=== PATIENT | female | born 1980 | race African-American/Black ===

== ENCOUNTER 2019-10-24 15:20 | Outpatient (CLI) | payer OTHER, SELFPAY ==
[2019-10-24 15:57] LABS: Hemoglobin A1C 7.1 % (<5.7)
[2019-10-24 16:00] LABS: Anion Gap 15.9 mmol/L (7-16); Blood Urea Nitrogen 10 mg/dL (7-17); Calcium 9.1 mg/dL (8.4-10.2); Carbon Dioxide 21 mmol/L (22-30); Chloride 104 mmol/L (98-107); Estimated Glomerular Filt Rate > 60; Glucose 153 mg/dL (65-105); Potassium 3.9 mmol/L (3.4-5.0); Sodium 137 mmol/L (137-145)
[2019-10-24 18:26] LABS: Creatinine Urine 295.2 mg/dL
[2019-10-24 18:31] LABS: MALB Creatinine Ratio 51.4 mg/g (0-30); Microalbumin Urine Random 151.6 mg/L (0-16.7)
== END 2019-10-24 15:21 | disposition home or self-care (01) ==
PROVIDERS: PCP Internal Medicine; Visit Provider Nurse Practitioner
DX: E11.9 Type 2 diabetes mellitus without complications (principal)
CPT/HCPCS: 36415; 80048; 82043; 83036

== ENCOUNTER 2020-01-23 17:51 | Outpatient (CLI) | payer OTHER, SELFPAY ==
[2020-01-23 18:15] LABS: Anion Gap 9 mmol/L (8-16); Blood Urea Nitrogen 11 mg/dL (7-17); Carbon Dioxide 27 mmol/L (22-30); Chloride 105 mmol/L (98-107); Estimated Glomerular Filt Rate > 60; Glucose 262 mg/dL (65-105); Sodium 141 mmol/L (137-145)
== END 2020-01-23 17:52 | disposition home or self-care (01) ==
LOC: ANHLAB 17:52
PROVIDERS: PCP Internal Medicine; Visit Provider Nurse Practitioner
DX: E11.69 Type 2 diabetes mellitus with other specified complication (principal)
CPT/HCPCS: 36415; 80048

== ENCOUNTER 2020-04-21 11:33 | Outpatient (CLI) | payer OTHER, MEDICAID, SELFPAY ==
[2020-04-21 12:03] LABS: Basophils Percent Auto 0.3 % (0.2-1.2); Eosinophils Percent Auto 0.3 % (0-4.4); Hematocrit 41.8 % (37.0-47.0); Hemoglobin 13.7 g/dL (12.0-15.0); Immature Granulocyte Absolute 0.02 K/mm3 (0.00-0.031); Immature Granulocyte Percent A 0.3 % (0-0.5); Lymphocytes Absolute Auto 2.48 K/mm3 (0.9-3.2); Lymphocytes Percent Auto 34.4 % (18.3-44.2); Mean Corpuscular HGB Conc 32.8 g/dl (32-36); Mean Corpuscular Hemoglobin 29.3 pg (26-34); Mean Corpuscular Volume 89.3 fl (80-100); Mean Platelet Volume 11.5 fl (7.4-10.4); Monocytes Absolute Auto 0.5 K/mm3 (0.1-0.6); Monocytes Percent Auto 7.1 % (2.6-8.5); Neutrophils Absolute Auto 4.2 K/mm3 (1.3-6.7); Neutrophils Percent Auto 57.6 % (45.5-73.1); Platelet Count Result 233 k/mm3 (150-375); Red Blood Count 4.68 M/mm3 (4.2-5.4); Red Cell Distribution Width 13.6 % (11.5-14.5); White Blood Count 7.2 K/mm3 (4.5-10.0)
[2020-04-21 12:15] LABS: Alanine Aminotransferase 34 U/L (4-35); Albumin Level 4.5 g/dL (3.5-5.1); Alkaline Phosphatase 68 U/L (38-126); Anion Gap 6 mmol/L (8-16); Aspartate Amino Transferase 38 U/L (14-36); Bilirubin,Total 0.8 mg/dL (0.2-1.3); Blood Urea Nitrogen 10 mg/dL (7-17); Carbon Dioxide 27 mmol/L (22-30); Chloride 105 mmol/L (98-107); Cholesterol 198 mg/dL (0-200); Estimated Glomerular Filt Rate > 60; Glucose 112 mg/dL (65-105); HDL Direct 55 mg/dL; Potassium 4.5 mmol/L (3.4-5.0); Sodium 138 mmol/L (137-145); Triglycerides 172 mg/dL (<150)
[2020-04-21 12:17] LABS: Hemoglobin A1C 9.4 % (<5.7)
[2020-04-21 12:27] LABS: LDL Cholesterol Direct 114 mg/dL
[2020-04-21 13:40] LABS: Creatinine Urine 253.9 mg/dL
[2020-04-21 13:43] LABS: MALB Creatinine Ratio 13.8 mg/g (0-30); Microalbumin Urine Random 35.1 mg/L (0-16.7)
== END 2020-04-21 11:34 | disposition home or self-care (01) ==
PROVIDERS: PCP Internal Medicine; Visit Provider Nurse Practitioner
DX: E11.9 Type 2 diabetes mellitus without complications (principal)
CPT/HCPCS: 36415; 80053; 80061; 82043; 83036; 85025

== ENCOUNTER 2020-07-21 10:47 | Outpatient (CLI) | payer OTHER, MEDICAID, SELFPAY ==
[2020-07-21 11:45] LABS: Anion Gap 8 mmol/L (8-16); Blood Urea Nitrogen 7 mg/dL (7-17); Calcium 9.2 mg/dL (8.4-10.2); Carbon Dioxide 26 mmol/L (22-30); Chloride 105 mmol/L (98-107); Cholesterol 225 mg/dL (0-200); Estimated Glomerular Filt Rate > 60; Glucose 137 mg/dL (65-105); HDL Direct 52 mg/dL; Sodium 139 mmol/L (137-145); Triglycerides 181 mg/dL (<150)
[2020-07-21 11:46] LABS: Hemoglobin A1C 7.1 % (<5.7)
[2020-07-21 11:56] LABS: LDL Cholesterol Direct 124 mg/dL
[2020-07-21 12:15] LABS: Creatinine Urine 209.2 mg/dL
[2020-07-21 12:20] LABS: MALB Creatinine Ratio 14.7 mg/g (0-30); Microalbumin Urine Random 30.7 mg/L (0-16.7)
== END 2020-07-21 10:48 | disposition home or self-care (01) ==
PROVIDERS: PCP Internal Medicine; Visit Provider Nurse Practitioner
DX: E11.9 Type 2 diabetes mellitus without complications (principal)
CPT/HCPCS: 36415; 80048; 80061; 82043; 83036

== ENCOUNTER 2020-10-06 11:07 | Outpatient (CLI) | payer OTHER, MEDICAID, SELFPAY ==
[2020-10-06 12:32] LABS: Hemoglobin A1C 7.2 % (<5.7)
[2020-10-06 12:44] LABS: MALB Creatinine Ratio 23.4 mg/g (0-30); Microalbumin Urine Random 64.7 mg/L (0-16.7)
== END 2020-10-06 11:08 | disposition home or self-care (01) ==
LOC: ANHLAB 11:11
PROVIDERS: PCP Internal Medicine; Visit Provider Clinical Nurse Specialist
DX: E11.9 Type 2 diabetes mellitus without complications (principal)
CPT/HCPCS: 36415; 82043; 83036

== ENCOUNTER 2021-01-10 12:04 | Outpatient (CLI) | payer OTHER, MEDICAID, SELFPAY ==
[2021-01-10 12:39] LABS: Basophils Percent Auto 0.4 % (0.2-1.2); Eosinophils Percent Auto 0.4 % (0-4.4); Hematocrit 40.4 % (37.0-47.0); Hemoglobin 13.2 g/dL (12.0-15.0); Immature Granulocyte Absolute 0.02 K/mm3 (0.00-0.031); Immature Granulocyte Percent A 0.3 % (0-0.5); Lymphocytes Absolute Auto 2.81 K/mm3 (0.9-3.2); Lymphocytes Percent Auto 39.3 % (18.3-44.2); Mean Corpuscular HGB Conc 32.7 g/dl (32-36); Mean Corpuscular Hemoglobin 29.1 pg (26-34); Mean Corpuscular Volume 89.2 fl (80-100); Monocytes Absolute Auto 0.5 K/mm3 (0.1-0.6); Monocytes Percent Auto 6.4 % (2.6-8.5); Neutrophils Absolute Auto 3.8 K/mm3 (1.3-6.7); Neutrophils Percent Auto 53.2 % (45.5-73.1); Platelet Count Result 213 k/mm3 (150-375); Red Blood Count 4.53 M/mm3 (4.2-5.4); Red Cell Distribution Width 13.7 % (11.5-14.5); White Blood Count 7.2 K/mm3 (4.5-10.0)
[2021-01-10 12:52] LABS: Potassium 3.8 mmol/L (3.4-5.0)
[2021-01-10 13:03] LABS: LDL Cholesterol Direct 140 mg/dL
[2021-01-10 13:15] LABS: Hemoglobin A1C 7.1 % (<5.7)
[2021-01-10 13:24] LABS: Vitamin D 25 Hydroxy 15.2 ng/mL
[2021-01-10 13:50] LABS: Alanine Aminotransferase 24 U/L (4-35); Albumin Level 4.7 g/dL (3.5-5.1); Alkaline Phosphatase 65 U/L (38-126); Anion Gap 9 mmol/L (8-16); Aspartate Amino Transferase 32 U/L (14-36); Bilirubin,Total 1.1 mg/dL (0.2-1.3); Blood Urea Nitrogen 7 mg/dL (7-17); Calcium 9.3 mg/dL (8.4-10.2); Carbon Dioxide 26 mmol/L (22-30); Chloride 105 mmol/L (98-107); Cholesterol 229 mg/dL (0-200); Estimated Glomerular Filt Rate > 60; Glucose 141 mg/dL (65-110); HDL Direct 51 mg/dL; Sodium 140 mmol/L (137-145); Triglycerides 226 mg/dL (<150)
== END 2021-01-10 12:05 | disposition home or self-care (01) ==
LOC: ANHLAB 12:07
PROVIDERS: PCP Internal Medicine; Visit Provider Nurse Practitioner
DX: E11.9 Type 2 diabetes mellitus without complications (principal); Z13.21 Encounter for screening for nutritional disorder
CPT/HCPCS: 36415; 80053; 80061; 82306; 83036; 85025

== ENCOUNTER 2021-03-19 09:17 | Outpatient (CLI) | payer OTHER, MEDICAID, SELFPAY ==
--- NOTE | 2021-03-19 11:00 | NEURO_ITS ---
Impression: # Known diabetic complains of numbness of feet. # Normal motor and sensory nerve conduction study including F-waves. # Normal needle/EMG exam. # Clinical correlation recommended,possibility of small fiber neuropathy or higher involvement cannot be ruled out. Nerve Conduction Studies Anti Sensory Summary Table Stim Site NR Peak (ms) P-T Amp (?V) Site1 Site2 Delta-P (ms) Dist (cm) Juan Carlos (m/s) Left Sup Fibular Anti Sensory (Ant Lat Mall) 14 cm 2.8 10.9 14 cm Ant Lat Mall 2.8 16.0 57 Right Sup Fibular Anti Sensory (Ant Lat Mall) 14 cm 3.2 4.2 14 cm Ant Lat Mall 3.2 16.0 50 Left Sural Anti Sensory (Lat Mall) Calf 3.8 7.7 Calf Lat Mall 3.8 16.0 42 Right Sural Anti Sensory (Lat Mall) Calf 3.6 15.2 Calf Lat Mall 3.6 16.0 44 Motor Summary Table Stim Site NR Onset (ms) O-P Amp (mV) Site1 Site2 Delta-0 (ms) Dist (cm) Juan Carlos (m/s) Left Peroneal Motor (Vastus Med) Ankle 4.1 4.4 Popit Ankle 8.2 38.0 46 Popit 12.3 3.6 Right Peroneal Motor (Vastus Med) Ankle 3.5 3.8 Popit Ankle 8.2 40.0 49 Popit 11.7 5.1 Left Tibial Motor (Abd Mc Brev) Ankle 4.1 3.8 Knee Ankle 8.9 42.0 47 Knee 13.0 5.0 Right Tibial Motor (Abd Mc Brev) Ankle 4.0 3.7 Knee Ankle 8.7 42.0 48 Knee 12.7 2.4 F Wave Studies NR F-Lat (ms) L-R F-Lat (ms) Left Peroneal (Mrkrs) (EDB) 49.18 0.87 Right Peroneal (Mrkrs) (EDB) 48.31 0.87 Left Tibial (Mrkrs) (Abd Hallucis) 48.54 0.35 Right Tibial (Mrkrs) (Abd Hallucis) 48.19 0.35 EMG Side Muscle Nerve Root Ins Act Fibs Amp Dur Recrt Comment Right AntTibialis Dp Br Fibular L4-5 Nml Nml Nml Nml Nml Right Gastroc Tibial S1-2 Nml Nml Nml Nml Nml Right Fibularis Long Sup Br Fibular L5-S1 Nml Nml Nml Nml Nml Right Flex Dig Long Tibial L5-S2 Nml Nml Nml Nml Nml Right Ext Dig Brev Dp Br Fibular L5, S1 Nml Nml Nml Nml Nml Left AntTibialis Dp Br Fibular L4-5 Nml Nml Nml Nml Nml Left Gastroc Tibial S1-2 Nml Nml Nml Nml Nml Left Fibularis Long Sup Br Fibular L5-S1 Nml Nml Nml Nml Nml Left Flex Dig Long Tibial L5-S2 Nml Nml Nml Nml Nml Left Ext Dig Brev Dp Br Fibular L5, S1 Nml Nml Nml Nml Nml MTDD
== END 2021-03-19 09:18 | disposition home or self-care (01) ==
LOC: ANHNEURO 09:18
PROVIDERS: PCP Internal Medicine; Visit Provider Nurse Practitioner
DX: R20.0 Anesthesia of skin (principal); R20.2 Paresthesia of skin
CPT/HCPCS: 95886; 95910

== ENCOUNTER 2021-05-28 17:51 | Outpatient (CLI) | payer OTHER, MEDICAID, SELFPAY ==
[2021-05-28 18:32] LABS: Creatinine Urine 175.9 mg/dL
[2021-05-28 18:45] LABS: Anion Gap 9 mmol/L (8-16); Blood Urea Nitrogen 10 mg/dL (7-17); Calcium 9.8 mg/dL (8.4-10.2); Carbon Dioxide 24 mmol/L (22-30); Chloride 105 mmol/L (98-107); Cholesterol 269 mg/dL (0-200); Estimated Glomerular Filt Rate > 60; Glucose 153 mg/dL (65-110); HDL Direct 48 mg/dL; Potassium 3.6 mmol/L (3.4-5.0); Sodium 138 mmol/L (137-145); Triglycerides 351 mg/dL (<150)
[2021-05-28 18:56] LABS: LDL Cholesterol Direct 146 mg/dL
[2021-05-28 19:23] LABS: MALB Creatinine Ratio 242.3 mg/g (0-30); Microalbumin Urine Random 426.2 mg/L (0-16.7)
[2021-05-28 22:37] LABS: Hemoglobin A1C 8.4 % (<5.7)
[2021-05-29 01:56] LABS: Vitamin B12 > 1000.0 pg/mL (239-931)
== END 2021-05-28 17:52 | disposition home or self-care (01) ==
PROVIDERS: PCP Internal Medicine; Visit Provider Nurse Practitioner
DX: R20.0 Anesthesia of skin (principal); R20.2 Paresthesia of skin; E11.9 Type 2 diabetes mellitus without complications
CPT/HCPCS: 36415; 80048; 80061; 82043; 82607; 83036; 84443

== ENCOUNTER 2021-09-16 14:25 | Outpatient (CLI) | payer OTHER, MEDICAID, SELFPAY ==
[2021-09-16 14:53] LABS: Hemoglobin A1C 7.7 % (<5.7)
[2021-09-16 15:04] LABS: Anion Gap 6 mmol/L (8-16); Blood Urea Nitrogen 11 mg/dL (7-17); Carbon Dioxide 22 mmol/L (22-30); Chloride 107 mmol/L (98-107); Estimated Glomerular Filt Rate > 60; Glucose 174 mg/dL (65-110); Sodium 135 mmol/L (137-145)
== END 2021-09-16 14:26 | disposition home or self-care (01) ==
LOC: ANHLAB 14:26
PROVIDERS: PCP Internal Medicine; Visit Provider Nurse Practitioner
DX: E11.9 Type 2 diabetes mellitus without complications (principal)
CPT/HCPCS: 36415; 80048; 83036

== ENCOUNTER 2021-09-19 15:30 | Outpatient (RCR) | payer OTHER, MEDICAID, SELFPAY ==
[2021-06-27 09:25] VITALS: BMI 38.7
[2021-06-27 09:35] VITALS: BMI 38.7
[2021-08-15 15:11] VITALS: BMI 38.7
[2021-08-15 15:13] VITALS: BMI 38.7
[2021-09-19 15:36] VITALS: BMI 38.4
[2021-09-19 15:41] VITALS: BMI 38.4
== END 2021-09-25 23:59 | disposition home or self-care (01) ==
LOC: ANHDMC 15:30
PROVIDERS: PCP Internal Medicine; Visit Provider Nurse Practitioner
DX: E11.9 Type 2 diabetes mellitus without complications (principal); Z71.3 Dietary counseling and surveillance; Z71.89 Other specified counseling
CPT/HCPCS: 97802; 97803; G0108

== ENCOUNTER 2021-12-14 13:49 | Outpatient (CLI) | payer OTHER, MEDICAID, SELFPAY ==
[2021-12-14 14:22] LABS: Anion Gap 12 mmol/L (8-16); Blood Urea Nitrogen 10 mg/dL (7-17); Calcium 9.3 mg/dL (8.4-10.2); Carbon Dioxide 22 mmol/L (22-30); Chloride 104 mmol/L (98-107); Estimated Glomerular Filt Rate > 60; Glucose 233 mg/dL (65-110); Sodium 138 mmol/L (137-145)
[2021-12-14 16:22] LABS: Hemoglobin A1C 7.8 % (<5.7)
[2021-12-14 17:23] LABS: Creatinine Urine 169.9 mg/dL
[2021-12-14 17:50] LABS: Microalbumin Urine Random 52.6 mg/L (0-16.7)
== END 2021-12-14 13:50 | disposition home or self-care (01) ==
LOC: ANHLAB 13:51
PROVIDERS: Clinical Nurse Specialist; PCP Internal Medicine; Visit Provider Nurse Practitioner
DX: E11.9 Type 2 diabetes mellitus without complications (principal); F41.9 Anxiety disorder, unspecified
CPT/HCPCS: 36415; 80048; 82043; 83036; 84443

== ENCOUNTER 2021-12-24 15:30 | Outpatient (RCR) | payer OTHER, MEDICAID, SELFPAY | END 2022-01-13 08:23 | disposition home or self-care (01) | LOC: ANHDMC 15:30 | PROVIDERS: PCP Internal Medicine; Visit Provider Nurse Practitioner | DX: E11.9 Type 2 diabetes mellitus without complications (principal); Z71.89 Other specified counseling | CPT/HCPCS: G0108 ==

== ENCOUNTER 2022-01-17 14:38 | Outpatient (RCR) | payer OTHER, MEDICAID, SELFPAY | END 2022-01-17 16:19 | disposition home or self-care (01) | LOC: ANHDMC 14:38 | PROVIDERS: PCP Internal Medicine; Visit Provider Nurse Practitioner | DX: E11.9 Type 2 diabetes mellitus without complications (principal); Z71.89 Other specified counseling | CPT/HCPCS: G0108 ==

== ENCOUNTER 2022-11-01 10:34 | Outpatient (CLI) | payer OTHER, MEDICAID, SELFPAY ==
[2022-11-01 10:52] LABS: Basophils Percent Auto 0.3 % (0.2-1.2); Eosinophils Percent Auto 0.3 % (0-4.4); Hematocrit 39.9 % (37.0-47.0); Hemoglobin 12.4 g/dL (12.0-15.0); Immature Granulocyte Absolute 0.01 K/mm3 (0.00-0.031); Immature Granulocyte Percent A 0.2 % (0-0.5); Lymphocytes Absolute Auto 2.35 K/mm3 (0.9-3.2); Lymphocytes Percent Auto 39.4 % (18.3-44.2); Mean Corpuscular HGB Conc 31.1 g/dl (32-36); Mean Corpuscular Hemoglobin 26.1 pg (26-34); Monocytes Absolute Auto 0.4 K/mm3 (0.1-0.6); Monocytes Percent Auto 6.7 % (2.6-8.5); Neutrophils Absolute Auto 3.2 K/mm3 (1.3-6.7); Neutrophils Percent Auto 53.1 % (45.5-73.1); Platelet Count Result 270 k/mm3 (150-375); Red Blood Count 4.75 M/mm3 (4.2-5.4); Red Cell Distribution Width 14.7 % (11.5-14.5)
[2022-11-01 11:08] LABS: Alanine Aminotransferase 36 U/L (6-35); Albumin Level 4.4 g/dL (3.5-5.1); Alkaline Phosphatase 73 U/L (38-126); Anion Gap 7 mmol/L (8-16); Aspartate Amino Transferase 37 U/L (14-36); Bilirubin,Total 0.9 mg/dL (0.2-1.3); Blood Urea Nitrogen 6 mg/dL (7-17); Calcium 8.8 mg/dL (8.4-10.2); Carbon Dioxide 27 mmol/L (22-30); Chloride 104 mmol/L (98-107); Cholesterol 226 mg/dL (0-200); Estimated Glomerular Filt Rate > 60; Glucose 100 mg/dL (65-110); HDL Direct 49 mg/dL; Potassium 3.9 mmol/L (3.4-5.0); Sodium 138 mmol/L (137-145); Triglycerides 144 mg/dL (<150)
[2022-11-01 11:19] LABS: LDL Cholesterol Direct 123 mg/dL
[2022-11-01 11:37] LABS: Thyroid Stimulating Hormone 0.871 uIU/mL (0.465-4.680)
[2022-11-01 12:17] LABS: Vitamin D 25 Hydroxy 17.8 ng/mL
== END 2022-11-01 10:35 | disposition home or self-care (01) ==
PROVIDERS: PCP Internal Medicine; Visit Provider Nurse Practitioner Psychiatric/Mental Health
DX: E78.5 Hyperlipidemia, unspecified (principal); E23.2 Diabetes insipidus; F41.1 Generalized anxiety disorder; F25.1 Schizoaffective disorder, depressive type; Z79.899 Other long term (current) drug therapy; I10 Essential (primary) hypertension; E66.9 Obesity, unspecified
CPT/HCPCS: 36415; 80053; 80061; 82306; 84443; 85025

== ENCOUNTER 2022-12-04 15:23 | Outpatient (CLI) | payer OTHER, MEDICAID, SELFPAY ==
--- NOTE | ~2022-12-04 | US_ITS ---
EXAMINATION: US pelvic complete w TV DATE: 12/04/2022 18:44 INDICATION: Benign neoplasm of connective and other soft tissues. TECHNIQUE: Multiple transabdominal and transvaginal sonographic images of the pelvis were obtained. COMPARISON: None. FINDINGS: TRANSABDOMINAL ULTRASOUND: The uterus measures 11.7 x 7.1 x 6.9 cm. There is physiologic free fluid in the pelvis. TRANSVAGINAL ULTRASOUND: The endometrial complex measures 10 mm in thickness. There are greater than 10 fibroids in the uterus measuring up to approximately 4.0 cm. The second largest fibroid measures 3.4 cm. The right ovary me asures 3.4 x 1.9 x 2.4 cm. The left ovary measures 2.5 x 1.2 x 2.0 cm. There is normal vascular flow in the ovaries. IMPRESSION: 1. Uterine fibroids. Reviewed, dictated and finalized at location [facility]. IMPRESSION: 1. Uterine fibroids.
== END 2022-12-04 15:24 | disposition home or self-care (01) ==
PROVIDERS: PCP Internal Medicine; Visit Provider Obstetrics & Gynecology
DX: N92.0 Excessive and frequent menstruation with regular cycle (principal); D25.9 Leiomyoma of uterus, unspecified
CPT/HCPCS: 76830; 76856

== ENCOUNTER 2023-08-04 15:01 | Outpatient (CLI) | payer OTHER, SELFPAY ==
--- NOTE | ~2023-08-04 | CT_ITS ---
CT scan of the Neck Technique: 2.5 mm axial scans were obtained through the neck after intravenous administration of 75 c c Omnipaque 350. Coronal and sagittal reconstructions of the neck were obtained. Dose reduction techn ique was used on this scan by utilizing automated exposure control and iterative reconstruction techn ique. The dose-length product (DLP) was 373.92 mGy-cm. Clinical History: Facial pain, left jaw pain Findings: There is no evidence of any significant cervical lymphadenopathy. Several small, nonenlarged jugulo- digastric and posterior cervical lymph nodes are noted bilaterally. Parapharyngeal spaces appear norm al bilaterally. The parotid and submandibular glands appear normal. The pharyngeal mucosal spaces appear normal. No soft tissue masses are seen in the neck. The thyroid gland appears normal. Images of the lung apices reveal no abnormalities. Impression: No significant abnormalities noted. Reviewed, dictated and finalized at [facility]. Impression: No significant abnormalities noted.
[2023-08-04 15:17] LABS: Estimated Glomerular Filt Rate > 60
== END 2023-08-04 15:02 ==
PROVIDERS: PCP Nurse Practitioner; Visit Provider Nurse Practitioner
DX: R51.9 Headache, unspecified (principal)
CPT/HCPCS: 70491; Q9967

== ENCOUNTER 2024-08-13 10:13 | Outpatient (CLI) | payer OTHER, SELFPAY ==
--- OUTSIDE RECORDS SUMMARY | 2024-08-13 10:16 | XMS_ITS | Patient Health Record ---
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 Name Role Phone Chinmay Stern DO Primary Care Provider Margaret Gresham Unavailable [phone] Kristyn Lemons Unavailable [phone] Migration, Provider Unavailable Unavailable Allergies No Known Allergies Reason For Referral No Information Medications Medication SIG (Take, Route, Frequency, Duration) Notes Start Date End Date Status Ozempic (2 MG/DOSE) 8 MG/3ML Subcutaneous *Reorder from Track for eRx and Interaction Alerts* 07/31/2023 Active Sertraline HCl 50 MG Oral 07/31/2023 Active DEXCOM G7 SENSOR DEVICE *Reorder from Track for eRx and Interaction Alerts* 07/31/2023 Active Jardiance 10 MG Oral 07/31/2023 Act catalina SLYND 4 MG (28) TABLET *Reorder from Track for eRx and Interaction Alerts* 07/31/2023 Active Amoxicillin 875 MG Oral 07/31/2023 Not-Taking OneTouch Verio In Vitro 07/31/2023 Acti ve Amoxicillin-Pot Clavulanate 875-125 MG Oral 07/31/2023 Not-Taking OneTouch Delica Plus [id number] 07/31/2023 Active Sertraline HCl 100 MG 1 tablet Oral Once a day for 90 days Active busPIRone HCl 10 MG Oral 07/31/2023 Active QUEtiapine Fumarate 200 MG 1 tablet at bedtime Oral at bedtime for 90 days Active Pravastatin Sodium 10 MG Oral 07/31/2023 Active busPIRone HCl 5 MG 1 tablet Oral three times a day for 90 days Active Tradjenta 5 MG Oral 07/31/2023 Acti ve Losartan Potassium 25 MG Oral 07/31/2023 Active Fluticasone Propionate Diskus 50 MCG/ACT Inhalation *Reorder from Track for eRx and Interaction Alerts* 07/31/2023 Active Immunizations Vaccine Route Administration Date Status Comme nts Influenza, injectable, MDCK, preservative free Unknown 01/31/2019 Administered Influenza, quadrivalent, split virus Unknown 01/31/2019 Administered Source VFC Code: V00 - VFC eligibility not determined/unknown Pfizer Biontech Covid-19 Vaccine 2nd dose Unknown 02/04/2021 Administered Pfizer Biontech Covid-19 Vaccine 2nd dose Unknown 02/25/2021 Administered Social History Tobacco Use: Social History Observation Description Date Details (start date - stop date) Former Smoker NA - 07/28/2009 Sex Assigned At : Social History Observation Description Sex Assigned At Female Tobacco Control (Standard) Question Answer Notes Tobacco use: Former smoker When did you stop smoking? 07/28/2009 How long has it been since you last smoked? Grea ter than 10 years AUDIT-C (Standard) Question Answer Notes Did you have a drink contain ing alcohol in the past year? Yes How often did you have six o r more drinks on one occasion in the past year? Never (0 point) How many drinks did you have on a typical day when you were drinking in the past year? 1 or 2 drinks (0 point) How often did you have a dri nk containing alcohol in the past year? Monthly or less (1 point) Problems Problem Type SNOMED Code ICD Code Onset Dates Problem Status W/U Status Risk Notes Problem Schizoaffective disorder, depressive type (11021012) Schizoaffective disorder, depressive type (F25.1) 07/13/19 24 Active confirmed Problem Generalized anxiety disorder (35929709) Generalized anxiety disorder (F41.1) 07/31/19 24 Active confirmed Problem Post-traumatic stress disorder, unspecified (F43.10) 07/31/19 24 Active confirmed Problem Obsessive-compulsi ve disorder (144660241) Obsessive-compulsi ve disorder, unspecified (F42.9) 07/31/19 24 Active confirmed Vital Signs Heart Rate 90 /min 06/27/2024 Respiratory Rate 18 /min 06/27/2024 Height-cm 165.10 cm 06/27/2024 Blood pressure diastolic 94 mm Hg 06/27/2024 Weight-kg 90.72 kg 06/27/2024 Height 65.00 in 06/27/2024 Blood pressure systolic 144 mm Hg 06/27/2024 Weight 200 lbs 06/27/2024 BMI 33.28 kg/m2 06/27/2024 Encounters Encounter Location Date Provider Diagnosis [place] [address] [address] 08/31/2023 Kristyn Hemann Generalized anxiety disorder F41.1 ; Post-traumatic stress disorder, unspecified F43.10 and Schizoaffective disorder, depressive type F25.1 [place] [address] [address] 10/08/2023 Kristyn Hemann Generalized anxiety disorder F41.1 ; Post-traumatic stress disorder, unspecified F43.10 ; Obsessive-compulsive disorder, unspecified F42.9 and Schizoaffective disorder, depressive type F25.1 [place] [address] [address] 10/12/2023 Margaret Madrigal Schizoaffective disorder, depressive type F25.1 ; Generalized anxiety disorder F41.1 ; Obsessive-compulsive disorder, unspecified F42.9 and Post-traumatic stress disorder, unspecified F43.10 [place] [address] [address] 10/30/2023 Kristyn Hemann Generalized anxiety disorder F41.1 ; Post-traumatic stress disorder, unspecified F43.10 ; Obsessive-compulsive disorder, unspecified F42.9 and Schizoaffective disorder, depressive type F25.1 [place] [address] [address] 12/03/2023 Kristyn Hemann Generalized anxiety disorder F41.1 ; Post-traumatic stress disorder, unspecified F43.10 ; Obsessive-compulsive disorder, unspecified F42.9 and Schizoaffective disorder, depressive type F25.1 [place] [address] [address] 12/15/2023 Margaret Madrigal Schizoaffective disorder, depressive type F25.1 ; Generalized anxiety disorder F41.1 ; Obsessive-compulsive disorder, unspecified F42.9 and Post-traumatic stress disorder, unspecified F43.10 [place] [address] [facility] [address] [place] [address] 01/04/2024 Kristyn Hemann Generalized anxiety disorder F41.1 ; Post-traumatic stress disorder, unspecified F43.10 ; Obsessive-compulsive disorder, unspecified F42.9 and Schizoaffective disorder, depressive type F25.1 [place] [address] [facility] [address] [place] [address] 02/01/2024 Kristyn Hemann Post-traumatic stres s disorder, unspecified F43.10 ; Obsessive-compulsive disorder, unspecified F42.9 ; Schizoaffective disorder, depressive type F25.1 and Generalized anxiety disorder F41.1 [place] [address] [address] 03/02/2024 Kristyn Hemann Post-traumatic stres s disorder, unspecified F43.10 ; Obsessive-compulsive disorder, unspecified F42.9 ; Schizoaffective disorder, depressive type F25.1 and Generalized anxiety disorder F41.1 [place] [address] [address] 03/15/2024 Margaret Madrigal Schizoaffective disorder, depressive type F25.1 ; Generalized anxiety disorder F41.1 ; Obsessive-compulsive disorder, unspecified F42.9 and Post-traumatic stress disorder, unspecified F43.10 [place] [address] [address] 04/01/2024 Kristyn Hemann Post-traumatic stres s disorder, unspecified F43.10 ; Obsessive-compulsive disorder, unspecified F42.9 ; Schizoaffective disorder, depressive type F25.1 and Generalized anxiety disorder F41.1 [place] [address] [facility] [address] [place] [address] 05/02/2024 Kristyn Hemann Post-traumatic stres s disorder, unspecified F43.10 ; Obsessive-compulsive disorder, unspecified F42.9 ; Schizoaffective disorder, depressive type F25.1 and Generalized anxiety disorder F41.[address] [address] 05/31/2024 Kristyn Hemann Post-traumatic stres s disorder, unspecified F43.10 ; Obsessive-compulsive disorder, unspecified F42.9 ; Schizoaffective disorder, depressive type F25.1 and Generalized anxiety disorder F41.[address] [address] 06/27/2024 Margaret Madrigal Schizoaffective disorder, depressive type F25.1 ; Generalized anxiety disorder F41.1 ; Obsessive-compulsive disorder, unspecified F42.9 ; Post-traumatic stress disorder, unspecified F43.10 ; Encounter for screening for depression Z13.31 ; Encounter for screening for cardiovascular disorders Z13.6 and Dietary counseling and surveillance Z71.[address] [address] 06/30/2024 Kristyn Hemann Post-traumatic stres s disorder, unspecified F43.10 ; Obsessive-compulsive disorder, unspecified F42.9 ; Schizoaffective disorder, depressive type F25.1 ; Generalized anxiety disorder F41.1 and Encounter for screening for depression Z13.[address] [address] 07/29/2024 Kristyn Lemons Encounter for screen ing for depression Z13.31 ; Generalized anxiety disorder F41.1 ; Obsessive-compulsive disorder, unspecified F42.9 and Schizoaffective disorder, depressive type F25.[address] [address] 08/15/2023 Provider Migration [address] [address] 08/16/2023 Provider Migration [address] [address] 08/19/2023 Provider Migration [address] [address] 03/02/2024 Margaret Madrigal Assessments Encounter Date Diagnosis (ICD Code) Assessment Notes Treatment Notes Treatment Clinical Notes Section Notes 08/31/2023 Generalized anxiety disorder (ICD-10 - F41.1) 08/31/2023 Post-traumatic stress disorder, unspecified (ICD-10 - F43.10) 10/08/2023 Generalized anxiety disorder (ICD-10 - F41.1) 10/08/2023 Post-traumatic stress disorder, unspecified (ICD-10 - F43.10) 10/12/2023 Schizoaffective disorder, depressive type (ICD-10 - F25.1) Learning About Schizoaffective Disorder material was published, Learning About How to Get Help During a Mental Health Crisis material was published 1. Schizoaffective disorder, depressive type -educated on all medications, metabolic and movement d/o decrease Seroquel 200 mg at dinner for depression, agitation and mood and psychosis- r/o teeth grinding seeing DM specialistlabs scheduled DM specialist 08/20 will obtain educated on all medications, benefits, side effects and risk, and educated on depression, anxiety, and ADHD, mood d/o and educated on compliance of medications, metabolic and movement d/o education appointment's, continue therapy discussion with patient about course of treatmentand patient instructions. education on serotonin syndrome F25.1: Schizoaffective disorder, depressive type quetiapine 200 mg tablet - Take 1 tablet(s) every day by oral route at dinner for 90 days. Qty: (90) tablet Refills: 0 Pharmacy: [facility] 2. Generalized anxiety disorder - Buspar 5 mg three times a day sertraline 100 mg daily for anxiety, depression and OCD F41.1: Generalized anxiety disorder buspirone 5 mg tablet - TAKE 1 TABLET BY MOUTH THREE TIMES DAILY WITH MEALS Qty: (270) tablet Refills: 0 [facility] sertraline 100 mg tablet - Take 1 tablet(s) every day by oral route in the morning for 90 days. Qty: (90) tablet Refills: 0 Pharmacy: [facility] 256 Note to Pharmacy: 3. 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 Posttraumatic stress disorder - Managed with sertraline and buspar and therapy F43.10: Post-traumatic stress disorder, unspecified 5. Long-term drug therapy 10/12/2023 Generalized anxiety disorder (ICD-10 - F41.1) Learning About Generalized Anxiety Disorder material was published, Generalized Anxiety Disorder: Care Instructions material was published, Learning About Anxiety Disorders material was published 1. Schizoaffective disorder, depressive type -educated on all medications, metabolic and movement d/o decrease Seroquel 200 mg at dinner for depression, agitation and mood and psychosis- r/o teeth grinding seeing DM specialistlabs scheduled DM specialist 08/20 will obtain educated on all medications, benefits, side effects and risk, and educated on depression, anxiety, and ADHD, mood d/o and educated on compliance of medications, metabolic and movement d/o education appointment's, continue therapy discussion with patient about course of treatmentand patient instructions. education on serotonin syndrome F25.1: Schizoaffective disorder, depressive type quetiapine 200 mg tablet - Take 1 tablet(s) every day by oral route at dinner for 90 days. Qty: (90) tablet Refills: 0 Pharmacy: [facility] 256 2. Generalized anxiety disorder - Buspar 5 mg three times a day sertraline 100 mg daily for anxiety, depression and OCD F41.1: Generalized anxiety disorder buspirone 5 mg tablet - TAKE 1 TABLET BY MOUTH THREE TIMES DAILY WITH MEALS Qty: (270) tablet Refills: 0 Pharmacy: [facility] 256 sertraline 100 mg tablet - Take 1 tablet(s) every day by oral route in the morning for 90 days. Qty: (90) tablet Refills: 0 Pharmacy: [facility] 256 Note to Pharmacy: 3. 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 Posttraumatic stress disorder - Managed with sertraline and buspar and therapy F43.10: Post-traumatic stress disorder, unspecified 5. Long-term drug therapy 10/30/2023 Generalized anxiety disorder (ICD-10 - F41.1) 10/30/2023 Post-traumatic stress disorder, unspecified (ICD-10 - F43.10) 12/03/2023 Generalized anxiety disorder (ICD-10 - F41.1) 12/03/2023 Post-traumatic stress disorder, unspecified (ICD-10 - F43.10) 12/15/2023 Schizoaffective disorder, depressive type (ICD-10 - F25.1) Learning About Schizoaffective Disorder material was published, Learning About How to Get Help During a Mental Health Crisis material was published 1. Schizoaffective disorder, depressive type -educated on all medications, metabolic and movement d/o Seroquel 200 mg at dinner for depression, agitation and mood and psychosis- r/o teeth grinding seeing DM specialistlabs scheduled labs with DM specialist educated on all medications, benefits, side effects and risk, and educated on depression, anxiety, and ADHD, mood d/o and educated on compliance of medications, metabolic and movement d/o education appointment's, continue therapy discussion with patient about course of treatmentand patient instructions. education on serotonin syndrome 2. 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 Posttraumatic stress disorder - Managed with sertraline and buspar and therapy 5. Long-term drug therapy 01/04/2024 Generalized anxiety disorder (ICD-10 - F41.1) 01/04/2024 Post-traumatic stress disorder, unspecified (ICD-10 - F43.10) 02/01/2024 Post-traumatic stress disorder, unspecified (ICD-10 - F43.10) 02/01/2024 Obsessive-compuls catalina disorder, unspecified (ICD-10 - F42.9) 03/02/2024 Post-traumatic stress disorder, unspecified (ICD-10 - F43.10) 03/02/2024 Obsessive-compuls catalina disorder, unspecified (ICD-10 - F42.9) 03/15/2024 Schizoaffective disorder, depressive type (ICD-10 - F25.1) Learning About Schizoaffective Disorder material was published, Learning About How to Get Help During a Mental Health Crisis material was published 1. Schizoaffective disorder, depressive type -educated on all medications, metabolic and movement d/o Seroquel 200 mg at dinner for depression, agitation and mood and psychosis- AIMS= 0 03/15/24- missing teeth - TMJ- teeth grinding night- MOUTH GAURD seen dentist seeing DM specialistlabs scheduled labs with DM specialist educated on all medications, benefits, side effects and risk, and educated on depression, anxiety, and ADHD, mood d/o and educated on compliance of medications, metabolic and movement d/o education appointment's, continue therapy discussion with patient about course of treatmentand patient instructions. education on serotonin syndrome 2. 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 Posttraumatic stress disorder - Managed with sertraline and buspar and therapy 5. Long-term drug therapy 04/01/2024 Post-traumatic stress disorder, unspecified (ICD-10 - F43.10) 04/01/2024 Obsessive-compuls catalina disorder, unspecified (ICD-10 - F42.9) 05/02/2024 Post-traumatic stress disorder, unspecified (ICD-10 - F43.10) 05/02/2024 Obsessive-compuls catalina disorder, unspecified (ICD-10 - F42.9) 05/31/2024 Post-traumatic stress disorder, unspecified (ICD-10 - F43.10) 05/31/2024 Obsessive-compuls catalina disorder, unspecified (ICD-10 - F42.9) 06/27/2024 Schizoaffective disorder, depressive type (ICD-10 - F25.1) Learning About Schizoaffective Disorder material was published, Learning About How to Get Help During a Mental Health Crisis material was published 1. Schizoaffective disorder, depressive type -educated on all medications, metabolic and movement d/o Seroquel 200 mg at dinner for depression, agitation and mood and psychosis- AIMS= 0 03/15/24- missing teeth - TMJ- teeth grinding night- MOUTH [place]URD seen dentist seeing DM specialistlabs scheduled labs with DM specialist educated on all medications, benefits, side effects and risk, and educated on depression, anxiety, and ADHD, mood d/o and educated on compliance of medications, metabolic and movement d/o education appointment's, continue therapy discussion with patient about course of treatmentand patient instructions. education on serotonin syndrome 2. 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 Posttraumatic stress disorder - Managed with sertraline and buspar and therapy 5. Long-term drug therapy 06/30/2024 Post-traumatic stress disorder, unspecified (ICD-10 - F43.10) 06/30/2024 Obsessive-compuls catalina disorder, unspecified (ICD-10 - F42.9) 07/29/2024 Generalized anxiety disorder (ICD-10 - F41.1) 07/29/2024 Encounter for screening for depression (ICD-10 - Z13.31) 07/29/2024 Obsessive-compuls catalina disorder, unspecified (ICD-10 - F42.9) 06/27/2024 Generalized anxiety disorder (ICD-10 - F41.1) Learning About Generalized Anxiety Disorder material was published, Generalized Anxiety Disorder: Care Instructions material was published, Learning About Anxiety Disorders material was published 1. Schizoaffective disorder, depressive type -educated on all medications, metabolic and movement d/o Seroquel 200 mg at dinner for depression, agitation and mood and psychosis- AIMS= 0 03/15/24- missing teeth - TMJ- teeth grinding night- MOUTH [place]URD seen dentist seeing DM specialistlabs scheduled labs with DM specialist educated on all medications, benefits, side effects and risk, and educated on depression, anxiety, and ADHD, mood d/o and educated on compliance of medications, metabolic and movement d/o education appointment's, continue therapy discussion with patient about course of treatmentand patient instructions. education on serotonin syndrome 2. 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 Posttraumatic stress disorder - Managed with sertraline and buspar and therapy 5. Long-term drug therapy 06/30/2024 Schizoaffective disorder, depressive type (ICD-10 - F25.1) 05/31/2024 Schizoaffective disorder, depressive type (ICD-10 - F25.1) 05/02/2024 Schizoaffective disorder, depressive type (ICD-10 - F25.1) 03/15/2024 Generalized anxiety disorder (ICD-10 - F41.1) Learning About Generalized Anxiety Disorder material was published, Generalized Anxiety Disorder: Care Instructions material was published, Learning About Anxiety Disorders material was published 1. Schizoaffective disorder, depressive type -educated on all medications, metabolic and movement d/o Seroquel 200 mg at dinner for depression, agitation and mood and psychosis- AIMS= 0 03/15/24- missing teeth - TMJ- teeth grinding night- MOUTH [place]UR[place] seen dentist seeing DM specialistlabs scheduled labs with DM specialist educated on all medications, benefits, side effects and risk, and educated on depression, anxiety, and ADHD, mood d/o and educated on compliance of medications, metabolic and movement d/o education appointment's, continue therapy discussion with patient about course of treatmentand patient instructions. education on serotonin syndrome 2. 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 Posttraumatic stress disorder - Managed with sertraline and buspar and therapy 5. Long-term drug therapy 04/01/2024 Schizoaffective disorder, depressive type (ICD-10 - F25.1) 03/02/2024 Schizoaffective disorder, depressive type (ICD-10 - F25.1) 01/04/2024 Obsessive-compuls catalina disorder, unspecified (ICD-10 - F42.9) 02/01/2024 Schizoaffective disorder, depressive type (ICD-10 - F25.1) 12/15/2023 Generalized anxiety disorder (ICD-10 - F41.1) Learning About Generalized Anxiety Disorder material was published, Generalized Anxiety Disorder: Care Instructions material was published, Learning About Anxiety Disorders material was published 1. Schizoaffective disorder, depressive type -educated on all medications, metabolic and movement d/o Seroquel 200 mg at dinner for depression, agitation and mood and psychosis- r/o teeth grinding seeing DM specialistlabs scheduled labs with DM specialist educated on all medications, benefits, side effects and risk, and educated on depression, anxiety, and ADHD, mood d/o and educated on compliance of medications, metabolic and movement d/o education appointment's, continue therapy discussion with patient about course of treatmentand patient instructions. education on serotonin syndrome 2. 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 Posttraumatic stress disorder - Managed with sertraline and buspar and therapy 5. Long-term drug therapy 12/03/2023 Obsessive-compuls catalina disorder, unspecified (ICD-10 - F42.9) 10/30/2023 Obsessive-compuls catalina disorder, unspecified (ICD-10 - F42.9) 10/12/2023 Obsessive-compuls catalina disorder, unspecified (ICD-10 - F42.9) Obsessive-Compuls catalina Disorder: Care Instructions material was published 1. Schizoaffective disorder, depressive type -educated on all medications, metabolic and movement d/o decrease Seroquel 200 mg at dinner for depression, agitation and mood and psychosis- r/o teeth grinding seeing DM specialistlabs scheduled DM specialist 08/20 will obtain educated on all medications, benefits, side effects and risk, and educated on depression, anxiety, and ADHD, mood d/o and educated on compliance of medications, metabolic and movement d/o education appointment's, continue therapy discussion with patient about course of treatmentand patient instructions. education on serotonin syndrome F25.1: Schizoaffective disorder, depressive type quetiapine 200 mg tablet - Take 1 tablet(s) every day by oral route at dinner for 90 days. Qty: (90) tablet Refills: 0 Pharmacy: [facility] 256 2. Generalized anxiety disorder - Buspar 5 mg three times a day sertraline 100 mg daily for anxiety, depression and OCD F41.1: Generalized anxiety disorder buspirone 5 mg tablet - TAKE 1 TABLET BY MOUTH THREE TIMES DAILY WITH MEALS Qty: (270) tablet Refills: 0 Pharmacy: [facility] 256 sertraline 100 mg tablet - Take 1 tablet(s) every day by oral route in the morning for 90 days. Qty: (90) tablet Refills: 0 Pharmacy: [facility] 256 Note to Pharmacy: 3. 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 Posttraumatic stress disorder - Managed with sertraline and buspar and therapy F43.10: Post-traumatic stress disorder, unspecified 5. Long-term drug therapy 10/08/2023 Obsessive-compuls catalina disorder, unspecified (ICD-10 - F42.9) 08/31/2023 Schizoaffective disorder, depressive type (ICD-10 - F25.1) 10/08/2023 Schizoaffective disorder, depressive type (ICD-10 - F25.1) 10/30/2023 Schizoaffective disorder, depressive type (ICD-10 - F25.1) 10/12/2023 Post-traumatic stress disorder, unspecified (ICD-10 - F43.10) 1. Schizoaffective disorder, depressive type -educated on all medications, metabolic and movement d/o decrease Seroquel 200 mg at dinner for depression, agitation and mood and psychosis- r/o teeth grinding seeing DM specialistlabs scheduled DM specialist 08/20 will obtain educated on all medications, benefits, side effects and risk, and educated on depression, anxiety, and ADHD, mood d/o and educated on compliance of medications, metabolic and movement d/o education appointment's, continue therapy discussion with patient about course of treatmentand patient instructions. education on serotonin syndrome F25.1: Schizoaffective disorder, depressive type quetiapine 200 mg tablet - Take 1 tablet(s) every day by oral route at dinner for 90 days. Qty: (90) tablet Refills: 0 Pharmacy: [facility] 256 2. Generalized anxiety disorder - Buspar 5 mg three times a day sertraline 100 mg daily for anxiety, depression and OCD F41.1: Generalized anxiety disorder buspirone 5 mg tablet - TAKE 1 TABLET BY MOUTH THREE TIMES DAILY WITH MEALS Qty: (270) tablet Refills: 0 Pharmacy: [facility] 256 sertraline 100 mg tablet - Take 1 tablet(s) every day by oral route in the morning for 90 days. Qty: (90) tablet Refills: 0 Pharmacy: [facility] 256 Note to Pharmacy: 3. 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 Posttraumatic stress disorder - Managed with sertraline and buspar and therapy F43.10: Post-traumatic stress disorder, unspecified 5. Long-term drug therapy 12/03/2023 Schizoaffective disorder, depressive type (ICD-10 - F25.1) 02/01/2024 Generalized anxiety disorder (ICD-10 - F41.1) 03/02/2024 Generalized anxiety disorder (ICD-10 - F41.1) 04/01/2024 Generalized anxiety disorder (ICD-10 - F41.1) 12/15/2023 Obsessive-compuls catalina disorder, unspecified (ICD-10 - F42.9) Obsessive-Compuls catalina Disorder: Care Instructions material was published 1. Schizoaffective disorder, depressive type -educated on all medications, metabolic and movement d/o Seroquel 200 mg at dinner for depression, agitation and mood and psychosis- r/o teeth grinding seeing DM specialistlabs scheduled labs with DM specialist educated on all medications, benefits, side effects and risk, and educated on depression, anxiety, and ADHD, mood d/o and educated on compliance of medications, metabolic and movement d/o education appointment's, continue therapy discussion with patient about course of treatmentand patient instructions. education on serotonin syndrome 2. 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 Posttraumatic stress disorder - Managed with sertraline and buspar and therapy 5. Long-term drug therapy 01/04/2024 Schizoaffective disorder, depressive type (ICD-10 - F25.1) 05/02/2024 Generalized anxiety disorder (ICD-10 - F41.1) 05/31/2024 Generalized anxiety disorder (ICD-10 - F41.1) 06/30/2024 Generalized anxiety disorder (ICD-10 - F41.1) 06/27/2024 Obsessive-compuls catalina disorder, unspecified (ICD-10 - F42.9) Obsessive-Compuls catalina Disorder: Care Instructions material was published 1. Schizoaffective disorder, depressive type -educated on all medications, metabolic and movement d/o Seroquel 200 mg at dinner for depression, agitation and mood and psychosis- AIMS= 0 03/15/24- missing teeth - TMJ- teeth grinding night- MOUTH GAURD seen dentist seeing DM specialistlabs scheduled labs with DM specialist educated on all medications, benefits, side effects and risk, and educated on depression, anxiety, and ADHD, mood d/o and educated on compliance of medications, metabolic and movement d/o education appointment's, continue therapy discussion with patient about course of treatmentand patient instructions. education on serotonin syndrome 2. 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 Posttraumatic stress disorder - Managed with sertraline and buspar and therapy 5. Long-term drug therapy 03/15/2024 Obsessive-compuls catalina disorder, unspecified (ICD-10 - F42.9) Obsessive-Compuls catalina Disorder: Care Instructions material was published 1. Schizoaffective disorder, depressive type -educated on all medications, metabolic and movement d/o Seroquel 200 mg at dinner for depression, agitation and mood and psychosis- AIMS= 0 03/15/24- missing teeth - TMJ- teeth grinding night- MOUTH GAURD seen dentist seeing DM specialistlabs scheduled labs with DM specialist educated on all medications, benefits, side effects and risk, and educated on depression, anxiety, and ADHD, mood d/o and educated on compliance of medications, metabolic and movement d/o education appointment's, continue therapy discussion with patient about course of treatmentand patient instructions. education on serotonin syndrome 2. 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 Posttraumatic stress disorder - Managed with sertraline and buspar and therapy 5. Long-term drug therapy 07/29/2024 Schizoaffective disorder, depressive type (ICD-10 - F25.1) 06/27/2024 Post-traumatic stress disorder, unspecified (ICD-10 - F43.10) 1. Schizoaffective disorder, depressive type -educated on all medications, metabolic and movement d/o Seroquel 200 mg at dinner for depression, agitation and mood and psychosis- AIMS= 0 03/15/24- missing teeth - TMJ- teeth grinding night- MOUTH GAURD seen dentist seeing DM specialistlabs scheduled labs with DM specialist educated on all medications, benefits, side effects and risk, and educated on depression, anxiety, and ADHD, mood d/o and educated on compliance of medications, metabolic and movement d/o education appointment's, continue therapy discussion with patient about course of treatmentand patient instructions. education on serotonin syndrome 2. 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 Posttraumatic stress disorder - Managed with sertraline and buspar and therapy 5. Long-term drug therapy 03/15/2024 Post-traumatic stress disorder, unspecified (ICD-10 - F43.10) 1. Schizoaffective disorder, depressive type -educated on all medications, metabolic and movement d/o Seroquel 200 mg at dinner for depression, agitation and mood and psychosis- AIMS= 0 03/15/24- missing teeth - TMJ- teeth grinding night- MOUTH GAURD seen dentist seeing DM specialistlabs scheduled labs with DM specialist educated on all medications, benefits, side effects and risk, and educated on depression, anxiety, and ADHD, mood d/o and educated on compliance of medications, metabolic and movement d/o education appointment's, continue therapy discussion with patient about course of treatmentand patient instructions. education on serotonin syndrome 2. 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 Posttraumatic stress disorder - Managed with sertraline and buspar and therapy 5. Long-term drug therapy 12/15/2023 Post-traumatic stress disorder, unspecified (ICD-10 - F43.10) 1. Schizoaffective disorder, depressive type -educated on all medications, metabolic and movement d/o Seroquel 200 mg at dinner for depression, agitation and mood and psychosis- r/o teeth grinding seeing DM specialistlabs scheduled labs with DM specialist educated on all medications, benefits, side effects and risk, and educated on depression, anxiety, and ADHD, mood d/o and educated on compliance of medications, metabolic and movement d/o education appointment's, continue therapy discussion with patient about course of treatmentand patient instructions. education on serotonin syndrome 2. 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 Posttraumatic stress disorder - Managed with sertraline and buspar and therapy 5. Long-term drug therapy 06/27/2024 Encounter for screening for depression (ICD-10 - Z13.31) 1. Schizoaffective disorder, depressive type -educated on all medications, metabolic and movement d/o Seroquel 200 mg at dinner for depression, agitation and mood and psychosis- AIMS= 0 03/15/24- missing teeth - TMJ- teeth grinding night- MOUTH GAURD seen dentist seeing DM specialistlabs scheduled labs with DM specialist educated on all medications, benefits, side effects and risk, and educated on depression, anxiety, and ADHD, mood d/o and educated on compliance of medications, metabolic and movement d/o education appointment's, continue therapy discussion with patient about course of treatmentand patient instructions. education on serotonin syndrome 2. 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 Posttraumatic stress disorder - Managed with sertraline and buspar and therapy 5. Long-term drug therapy 06/30/2024 Encounter for screening for depression (ICD-10 - Z13.31) 06/27/2024 Encounter for screening for cardiovascular disorders (ICD-10 - Z13.6) 1. Schizoaffective disorder, depressive type -educated on all medications, metabolic and movement d/o Seroquel 200 mg at dinner for depression, agitation and mood and psychosis- AIMS= 0 03/15/24- missing teeth - TMJ- teeth grinding night- MOUTH GAURD seen dentist seeing DM specialistlabs scheduled labs with DM specialist educated on all medications, benefits, side effects and risk, and educated on depression, anxiety, and ADHD, mood d/o and educated on compliance of medications, metabolic and movement d/o education appointment's, continue therapy discussion with patient about course of treatmentand patient instructions. education on serotonin syndrome 2. 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 Posttraumatic stress disorder - Managed with sertraline and buspar and therapy 5. Long-term drug therapy 06/27/2024 Dietary counseling and surveillance (ICD-10 - Z71.3) 1. Schizoaffective disorder, depressive type -educated on all medications, metabolic and movement d/o Seroquel 200 mg at dinner for depression, agitation and mood and psychosis- AIMS= 0 03/15/24- missing teeth - TMJ- teeth grinding night- MOUTH GAURD seen dentist seeing DM specialistlabs scheduled labs with DM specialist educated on all medications, benefits, side effects and risk, and educated on depression, anxiety, and ADHD, mood d/o and educated on compliance of medications, metabolic and movement d/o education appointment's, continue therapy discussion with patient about course of treatmentand patient instructions. education on serotonin syndrome 2. 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 Posttraumatic stress disorder - Managed with sertraline and buspar and therapy 5. Long-term drug therapy 10/12/2023 Other Sertraline Oral Tablet (SERTRALINE - ORAL) material was published, Quetiapine Oral Tablet (QUETIAPINE - ORAL) material was published, Buspirone Oral Tablet (BUSPIRONE - ORAL) material was published 1. Schizoaffective disorder, depressive type -educated on all medications, metabolic and movement d/o decrease Seroquel 200 mg at dinner for depression, agitation and mood and psychosis- r/o teeth grinding seeing DM specialistlabs scheduled DM specialist 08/20 will obtain educated on all medications, benefits, side effects and risk, and educated on depression, anxiety, and ADHD, mood d/o and educated on compliance of medications, metabolic and movement d/o education appointment's, continue therapy discussion with patient about course of treatmentand patient instructions. education on serotonin syndrome F25.1: Schizoaffective disorder, depressive type quetiapine 200 mg tablet - Take 1 tablet(s) every day by oral route at dinner for 90 days. Qty: (90) tablet Refills: 0 Pharmacy: [facility] 256 2. Generalized anxiety disorder - Buspar 5 mg three times a day sertraline 100 mg daily for anxiety, depression and OCD F41.1: Generalized anxiety disorder buspirone 5 mg tablet - TAKE 1 TABLET BY MOUTH THREE TIMES DAILY WITH MEALS Qty: (270) tablet Refills: 0 Pharmacy: [facility] 256 sertraline 100 mg tablet - Take 1 tablet(s) every day by oral route in the morning for 90 days. Qty: (90) tablet Refills: 0 Pharmacy: [facility] 256 Note to Pharmacy: 3. 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 Posttraumatic stress disorder - Managed with sertraline and buspar and therapy F43.10: Post-traumatic stress disorder, unspecified 5. Long-term drug therapy Plan Of Treatment Next Appt Details Provider Name:Kristyn Lemons, 08/31/2024 03:00:00 PM, [address], [address], [place] [id number]|2024-08-13 10:16:00|2024-08-13 10:16:00|XMS_ITS|TYRESEG MICHAEL|External Medical Summaries|[id number]|" Encounter Summary Created on: August 13, 2024 Margaret Briones : 1980 Sex: Female Author Organization [facility] Care Team Providers Care Gas System Operator Name Role Phone Chinmay Stern DO Primary Care Provider [phone] No, Physician Primary Care Provider [phone] Chinmay Stern DO Unavailable [phone] Chinmay Stern DO Primary Care Provider [phone] Encounter Details Date Type Department Care Team (Latest Contact Info) Description 06/24/2018 Orders Only [facility] ProviderRk MD [address] [place], [place] [id number] Social History Tobacco Use Types Packs/Day Years Used Date Smoking Tobacco: Never Assessed Comments Unknown Sex and Gender Information Value Date Recorded Sex Assigned at Not on file Legal Sex Female 6:25 PM [employer] Gender Identity Not on file Sexual Orientation Not on file documented as of this encounter Plan of Treatment Not on file documented as of this encounter Procedures Procedure Name Priority Date/Time Associated Diagnosis Comments PROCEDURE - RESULT 06/24/2018 12 :00 AM CDT documented in this encounter Results * PROCEDURE - RESULT (06/24/2018 12:00 AM CDT) Narrative 06/24/2018 12:00 AM CDT Ordered by an unspecified provider. Historical Provider Final Res ult documented in this encounter Visit Diagnoses Not on filedocumented in this encounter Care Teams Gas System Operator Relationship Specialty Start Date End Date Chinmay Stern DO PCP - General 07/23/18 07/28/18 No, Physician PCP - General 07/29/18 03/24/19 Chinmay Stern DO PCP - General Internal Medicine 03/25/19 Chinmay Stern DO 07/29/18 01/28/22 documented as of this encounter "
--- OUTSIDE RECORDS SUMMARY | 2024-08-13 10:16 | XMS_ITS | Clinical Summary ---
Author Organization [facility] Address [address] [place] [address] Care Team Providers Care Reimbursement Representative Name Role Phone Chinmay Stern DO Primary Care Provider [phone] Allergies No known active allergies Medications busPIRone (BUSPAR) 10 mg tablet 3 (three) times a day 0 9 Active HYDROcodone-alicia taminophen (NORCO) 5-325 mg per tablet 0 9 Active HYDROcodone-alicia taminophen (NORCO) 7.5-325 mg per tablet Take by mouth 0 9 Active QUEtiapine (SEROquel) 50 mg tablet 3 9 Active QUEtiapine (SEROquel) 100 mg tablet 0 9 Active sertraline (ZOLOFT) 100 mg tablet 2 9 Active metFORMIN (GLUCOPHAGE) 500 mg tablet TAKE 1 TABLET BY MOUTH TWICE DAILY FOR 1 WEEK THEN INCREASE TO 2 TABLETS TWICE DAILY THEREAFTER IF TOLERATING. 0 9 Active lithium 150 mg capsule TAKE 1 CAPSULE BY MOUTH TWICE DAILY DIRECTED FOR 30 DAYS 2 9 Active ONETOUCH DELICA PLUS LANCET 33 gauge misc USE 1 TO CHECK GLUCOSE ONCE DAILY 9 Active ONETOUCH ULTRA2 METER misc as directed 9 Active ONETOUCH ULTRA BLUE TEST STRIP strip USE 1 STRIP TO CHECK GLUCOSE ONCE DAILY 1 9 Active Active Problems Problem Noted Date Diagnosed Date Breast calcification, right 04/07/2019 Breast mass, right 04/06/2019 Right calf pain 09/14/2013 Overview (07/30/2018): 2015 IMO Updt Gestational hypertension 04/06/2010 Encounters Date Type Department Care Team Description 05/25/2024 3:55 PM [employer] - 05/25/2024 11:59 PM [employer] Hospital Encounter [facility] Breast Imaging [facility] ([facility]) [address] [place] [id number] Screening mammogram, encounter for Discharge Disposition: Discharge to home or self care from Last 3 Months Surgical History Surgery Date Site/Laterality Comments CARPAL TUNNEL RELEASE Left ANKLE SURGERY 03/30/2016 - 03/29/2017 Right BREAST BIOPSY 04/26/2019 Right BREAST BIOPSY 04/26/2019 Right Medical History Medical History Date Comments Depression Diabetes (HCC) Hypertension Family History Medical History Relation Name Comments Breast cancer Maternal Grandmother Colon cancer Paternal Grandmother Relation Name Status Comments Maternal Grandmother Paternal Grandmother Social History Tobacco Use Types Packs/Day Years Used Date Smoking Tobacco: Never Smokeless Tobacco: Never Alcohol Use Standard Drinks/Week Comments Not Currently 0 (1 standard drink = 0.6 oz pur e alcohol) Comments No Sex and Gender Information Value Date Recorded Sex Assigned at Not on file Legal Sex Female 6:25 PM [employer] Gender Identity Not on file Sexual Orientation Not on file Obstetrics History Last Filed Vital Signs Vital Sign Reading Time Taken Comments Blood Pressure 140/91 09/06/2018 9:55 AM CDT Pulse 87 09/06/2018 9:55 AM CDT Temperature 36.2 C (97.2 F) 09/06/2018 9:55 AM CDT Respiratory Rate - - Oxygen Saturation 99% 09/06/2018 9:55 AM CDT Inhaled Oxygen Concentration - - Weight 104.3 kg (230 lb) 05/16/2019 3:15 PM [employer] Height 162.6 cm (5' 4 ) 05/16/2019 3:15 PM [employer] Body Mass Index 39.48 05/16/2019 3:15 PM [employer] Plan of Treatment Health Maintenance Due Date Last Done Comments Cervical Cancer Screening 1980 Colon Cancer Screening-Colonoscopy 1980 Depression Screening 1980 Hepatitis C Screening 1980 Hepatitis B Screening 01/11/1996 Regular Well Visit/Exam 18-64 01/11/1996 DTaP/Tdap/Td Vaccine (2 - Td or Tdap) 04/08/2020 04/08/2010 Influenza Vaccine (#1) 2023 Breast Cancer Screening-Mammogram 05/25/2025 05/25/2024, 05/22/2023, 02/05/2022, Additional history exists HPV Vaccines Aged Out No longer eligi ble based on patient's age to complete this topic Pneumococcal vaccine <65 Aged Out No longer eligible based on patient's age to complete this topic Procedures Procedure Name Priority Date/Time Associated Diagnosis Comments SCREENING MAMMOGRAM BILATERAL W DARWIN Schedule Routine, Read Routine (OP Routine) 05/25/2024 4:08 PM [employer] Screening mammogram, encounter for from Last 3 Months Results * Screening Mammogram Bilateral W Darwin (05/25/2024 4:08 PM [employer]) Anatomical Region Laterality Modality Breast Bilateral Mammography Narrative 05/26/2024 3:35 PM [employer] Mammogram Technique: Bilateral Digital Breast Tomosynthesis, Bilateral C-view 2D Screening mammogram. Views obtained: bilateral craniocaudal and bilateral mediolateral oblique. Computer Aided Detection was performed. Mammogram Findings: The present examination has been compared to prior imaging studies performed at [facility] on 02/05/2022, 04/02/2022 and 05/22/2023. The breasts are heterogeneously dense, which may obscure small masses. There is no suspicious abnormality in either breast. Impression: There is no mammographic evidence of malignancy. Annual screening mammography is recommended. If supplemental screening is desired, breast MRI would be recommended in this patient with heterogeneously dense breasts. OVERALL FINAL ASSESSMENT: BI-RADS CATEGORY 1: Negative. Procedure Note Edith Carlisle MD - 05/26/2024 Mammogram Technique: Bilateral Digital Breast Tomosynthesis, Bilateral C-view 2D Screening mammogram. Views obtained: bilateral craniocaudal and bilateral mediolateral oblique. Computer Aided Detection was performed. Mammogram Findings: The present examination has been compared to prior imaging studies performed at [facility] on 02/05/2022, 04/02/2022 and 05/22/2023. The breasts are heterogeneously dense, which may obscure small masses. There is no suspicious abnormality in either breast. Impression: There is no mammographic evidence of malignancy. Annual screening mammography is recommended. If supplemental screeningis desired, breast MRI would be recommended in this patient with heterogeneously dense breasts. OVERALL FINAL ASSESSMENT: BI-RADS CATEGORY 1: Negative. us Self Screening Mammogram IMG MAMMO PROCEDURES Fi nal Result from Last 3 Months Insurance [facility] PPO [facility] [place] [address] [facility] Care Teams Reimbursement Representative Relationship Specialty Start Date End Date Chinmay Stern DO PCP - General Internal Medicine 03/25/19
--- OUTSIDE RECORDS SUMMARY | 2024-08-13 10:16 | XMS_ITS | Referral Summary ---
Author Organization [facility] [place] Address [address] [place] [address] Care Team Providers Care Kidney Puller Name Role Phone Chinmay Stern DO Primary Care Provider [phone] Encounters Date Type Department Care Team Description 05/25/2024 3:55 PM [employer]ER AND BUFFER - 05/25/2024 11:59 PM [facility] Hospital Encounter [facility] Breast Imaging [facility] ([facility]) [address] [place], [place] [id number] Screening mammogram, encounter for Discharge Disposition: Discharge to home or self care from Last 3 Months Allergies No known active allergies Medications busPIRone [...] (07/30/2018): 2015 IMO Updt Gestational hypertension 04/06/2010 Social History Tobacco Use Types Packs/Day Years Used Date Smoking Tobacco: Never Smokeless Tobacco: Never Alcohol Use Standard Drinks/Week Comments Not Currently 0 (1 standard drink = 0.6 oz pur e alcohol) Comments No Sex and Gender Information Value Date Recorded Sex Assigned at Not on file 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 Gender Identity Not on file Sexual Orientation Not on file Last Filed Vital Signs Vital Sign Reading Time Taken Comments Blood Pressure 140/91 09/06/2018 9:55 AM CDT Pulse 87 09/06/2018 9:55 AM CDT Temperature 36.2 C (97.2 F) 09/06/2018 9:55 AM CDT Respiratory Rate - - Oxygen Saturation 99% 09/06/2018 9:55 AM CDT Inhaled Oxygen Concentration - - Weight 104.3 kg (230 lb) 05/16/2019 3:15 PM [employer] BUFFER Height 162.6 cm (5' 4 ) 05/16/2019 3:15 PM [employer]FFER Body Mass Index 39.48 05/16/2019 3:15 PM [employer]ER [employer] BUFFER Plan of Treatment Not on file Procedures Procedure Name Priority Date/Time Associated Diagnosis Comments SCREENING MAMMOGRAM BILATERAL W DARWIN Schedule Routine, Read Routine (OP Routine) 05/25/2024 4:08 PM [employer] [employer] BUFFER Screening mammogram, encounter for from Last 3 Months Results * Screening Mammogram Bilateral W Darwin (05/25/2024 4:08 PM [employer]FFER) Anatomical Region Laterality Modality Breast Bilateral Mammography Narrative 05/26/2024 3:35 PM [employer]ER [employer] BUFFER Mammogram Technique: Bilateral Digital Breast Tomosynthesis, Bilateral C-view 2D Screening mammogram. Views obtained: bilateral craniocaudal and bilateral mediolateral oblique. Computer Aided Detection was performed. Mammogram Findings: The present examination has been compared to prior imaging studies performed at [facility] on 02/05/2022, 04/02/2022 and 05/22/2023. The breasts [...] compared to prior imaging studies performed at [facility] on 02/05/2022, 04/02/2022 and 05/22/2023. The breasts [...] nal Result from Last 3 Months Insurance [employer] [facility] PPO IDPA [facility] IDPA [facility] Care Teams Kidney Puller Relationship Specialty Start Date End Date Chinmay Stern DO PCP - General Internal Medicine 03/25/19
[2024-08-13 11:23] LABS: Alanine Aminotransferase 26 U/L (6-35); Albumin Level 4.6 g/dL (3.5-5.1); Alkaline Phosphatase 61 U/L (38-126); Anion Gap 8 mmol/L (4-12); Aspartate Amino Transferase 37 U/L (14-36); Bilirubin,Total 1.2 mg/dL (0.2-1.3); Blood Urea Nitrogen 9 mg/dL (7-17); Calcium 9.6 mg/dL (8.4-10.2); Carbon Dioxide 26 mmol/L (22-30); Chloride 105 mmol/L (98-107); Cholesterol 223 mg/dL (0-200); Estimated Glomerular Filt Rate > 60; Glucose 95 mg/dL (65-110); HDL Direct 57 mg/dL; Potassium 4.2 mmol/L (3.4-5.0); Sodium 139 mmol/L (137-145); Triglycerides 158 mg/dL (<150)
[2024-08-13 11:34] LABS: LDL Cholesterol Direct 114 mg/dL
[2024-08-13 11:40] LABS: Free T4 Free Thyroxine 0.98 ng/dL (0.78-2.19); Vitamin D 25 Hydroxy 28.3 ng/mL
[2024-08-13 12:33] LABS: Creatinine Urine 196.8 mg/dL
[2024-08-13 12:37] LABS: MALB Creatinine Ratio 8.9 mg/g (0-30); Microalbumin Urine Random 17.5 mg/L (0-16.7)
== END 2024-08-13 10:14 | disposition home or self-care (01) ==
LOC: ANHLAB 10:14
PROVIDERS: PCP Nurse Practitioner; Visit Provider Nurse Practitioner Family
DX: E78.5 Hyperlipidemia, unspecified (principal); I10 Essential (primary) hypertension; E87.1 Hypo-osmolality and hyponatremia; E66.01 Morbid (severe) obesity due to excess calories; E11.9 Type 2 diabetes mellitus without complications; E55.9 Vitamin D deficiency, unspecified
CPT/HCPCS: 36415; 80053; 80061; 82043; 82306; 82607; 84439; 84443

== ENCOUNTER 2024-11-25 13:34 | Outpatient (CLI) | payer OTHER, SELFPAY ==
--- OUTSIDE RECORDS SUMMARY | 2024-11-25 13:37 | XMS_ITS | Encounter Summary ---
Author Organization [facility] Care Team Providers Care Staff Accountant Name Role Phone Chinmay Stern DO Primary Care Provider [phone]- [phone] No, Physician Primary Care Provider Chinmay Stern DO Unavailable [phone] Chinmay Stern DO Primary Care Provider + [phone] Encounter Details Date Type Department Care Team (Latest Contact Info) Description 06/24/2018 Orders Only [facility] ProviderRk MD [address] [place] [id number] Social History Tobacco Use Types Packs/Day Years Used Date Smoking Tobacco: Never Assessed Comments Unknown Sex and Gender Information Value Date Recorded Sex Assigned at Not on file 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
--- OUTSIDE RECORDS SUMMARY | 2024-11-25 13:37 | XMS_ITS | Clinical Summary ---
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 Gender Identity Not on file Sexual Orientation [...] 104.3 kg (230 lb) 05/16/2019 3:15 PM SUBMARINE ADVISORY TEAM WATCH OFFICER Height 162.6 cm (5' 4) 05/16/2019 3:15 PM SUBMARINE ADVISORY TEAM WATCH OFFICER Body Mass Index 39.48 05/16/2019 3:15 PM SUBMARINE ADVISORY TEAM WATCH OFFICER Plan of Treatment Health Maintenance Due Date Last Done Comments Cervical Cancer Screening 1978 Colon Cancer Screening-Colonoscopy 1978 Depression Screening 1978 Hepatitis C Screening 1978 Hepatitis B Screening 01/11/1996 Regular Well Visit/Exam 18-64 01/11/1996 DTaP/Tdap/Td Vaccine (2 - Td or Tdap) 04/08/2020 04/08/2010 Influenza Vaccine (#1) 2024 Breast Cancer Screening-Mammogram 05/25/2025 05/25/2024, 05/22/2023, 02/05/2022, [...] Read Routine (OP Routine) 05/25/2024 4:08 PM SUBMARINE ADVISORY TEAM WATCH OFFICER Screening mammogram, encounter for from Last 3 Months or Most Recently Relevant to Health Maintenance Results * Screening Mammogram Bilateral W Darwin (05/25/2024 4:08 PM SUBMARINE ADVISORY TEAM WATCH OFFICER) Anatomical Region Laterality Modality Breast Bilateral Mammography Narrative 05/26/2024 3:35 PM SUBMARINE ADVISORY TEAM WATCH OFFICER Mammogram Technique: Bilateral Digital Breast Tomosynthesis, Bilateral C-view 2D Screening mammogram. Views obtained: bilateral craniocaudal and bilateral mediolateral oblique. Computer Aided Detection was performed. Mammogram Findings: The present examination has been compared to prior imaging studies performed at [facility] on 02/05/2022, 04/02/2022 and 05/22/2023. The [...] compared to prior imaging studies performed at [facility] on 02/05/2022, 04/02/2022 and 05/22/2023. The [...] Fi nal Result from Last 3 Months or Most Recently Relevant to Health Maintenance Insurance [facility] PPO IDPA [facility] IDPA [facility] Care Teams Lime Plant Operator Relationship Specialty Start Date End Date Chinmay Stern DO PCP - General Internal Medicine 03/25/19
[2024-11-25 14:18] LABS: Hematocrit 44.5 % (37.0-47.0); Hemoglobin 14.7 g/dL (12.0-15.0); Immature Granulocyte Percent A 0.1 % (0-0.5); Lymphocytes Absolute Auto 2.47 K/mm3 (0.9-3.2); Mean Corpuscular HGB Conc 33.0 g/dl (32-36); Mean Corpuscular Hemoglobin 28.6 pg (26-34); Mean Corpuscular Volume 86.6 fl (80-100); Nucleated Red Blood Cells Absolute Auto 0.000 K/mm3 (0.0-0.012); Nucleated Red Blood Cells Perc 0.0 % (0.0-0.2); Platelet Count Result 241 k/mm3 (150-375); Red Blood Count 5.14 M/mm3 (4.2-5.4); White Blood Count 7.2 K/mm3 (4.5-10.0)
[2024-11-25 15:03] LABS: Thyroid Stimulating Hormone Reflex 1.660 uIU/mL (0.465-4.68)
== END 2024-11-25 13:35 | disposition home or self-care (01) ==
LOC: ANHLAB 13:36
PROVIDERS: PCP Nurse Practitioner; Referring Provider Nurse Practitioner; Visit Provider Nurse Practitioner Obstetrics & Gynecology
DX: N92.0 Excessive and frequent menstruation with regular cycle (principal); I10 Essential (primary) hypertension
CPT/HCPCS: 36415; 84146; 84443; 85025